=== PATIENT | female | born 1960 | race Caucasian/White ===

== ENCOUNTER 2020-07-10 07:37 | Inpatient (IN) | payer MEDICAID ==
[~2020-07-10] VITALS: Ht 154.9 cm; Wt 54.4 kg
[2020-07-10 07:51] VITALS: BP 153/97
[2020-07-10] MEDS ORDERED: SIMVASTATIN80 MG PO (07:55)
[2020-07-10] MEDS ORDERED: NEURONTIN100 MG PO (07:55)
[2020-07-10] MEDS ORDERED: DESYREL150 MG PO (07:55)
[2020-07-10] MEDS ORDERED: KEPPRA XR500 MG PO (07:55)
[2020-07-10] MEDS ORDERED: METFORMIN HCL500 M3 PO (07:55)
[2020-07-10] MEDS ORDERED: LASIX 40 MG TAB40 MG PO (07:55)
[2020-07-10 08:02] LABS: URINE BILIRUBIN NEGATIVE (Negative); URINE BLOOD NEGATIVE (Negative); URINE CLARITY CLEAR; URINE COLOR YELLOW; URINE GLUCOSE-RANDOM NEGATIVE (Negative); URINE KETONES NEGATIVE (Negative); URINE LEUKOCYTES-REFLEX NEGATIVE (Negative); URINE NITRITE-REFLEX NEGATIVE (Negative); URINE PROTEIN NEGATIVE (Negative); URINE UROBILINOGEN 0.2 E.U./dl (0.2-1.0)
[2020-07-10 08:23] LABS: ABSOLUTE EOSINOPHILS 0.1 thou/uL (0.0-0.7); ABSOLUTE MONOCYTES 0.5 thou/uL (0.0-1.2); ABSOLUTE NEUTROPHILS 3.4 thou/uL (1.6-8.1); BASOPHILS 0.8 %; EOSINOPHILS 2.5 %; HEMATOCRIT 40.6 % (37.0-47.0); HEMOGLOBIN 13.9 gm/dL (12.0-15.0); LYMPHOCYTES 19.8 %; MCH 30.9 pg (26.0-34.0); MCHC 34.1 g/dL (28.0-37.0); MCV 90.4 fL (80.0-100.0); MONOCYTES 9.1 %; MPV 7.9 fl. (7.2-11.1); NUCLEATED RBCS 0 /100WBC; PLATELET COUNT* 138 thou/uL (150-400); POLYS 67.8 %; RBC 4.49 mil/uL (4.20-5.00); RDW-CV 13.1 % (10.5-14.5); WBC 5.1 thou/uL (4.0-11.0)
[2020-07-10 08:33] LABS: CALCIUM 8.9 mg/dL (8.5-10.1); POTASSIUM 3.2 mmol/L (3.5-5.1)
[2020-07-10 08:45] LABS: ALBUMIN 3.4 g/dL (3.4-5.0); TOTAL BILIRUBIN 0.5 mg/dL (<0.1-1.0); TOTAL PROTEIN 8.4 g/dL (6.4-8.2)
[2020-07-10 14:30] VITALS: BP 138/96
--- NOTE | 2020-07-11 16:33 | EKG ---
[place] [address] ELECTROCARDIOGRAM REPORT Name: MAT CHAVEZN Room: [address] [place] [facility].#: [id number] Admission: 07/10/20 Attend Phys: Richard Valadez Discharge: 07/10/20 Date of : 56 Date of Service: 07/10/20816 Report #: [id number] THIS REPORT FOR: //name// [facility] ED Test Date: 2020-07-10 Test Time: 08:17:34 Pat Name: MAT CHAVEZ Department: Room: [facility] Gender: F [employer] Cutter: CCD : 1960 Requested By: Antoine Martínez Order Number: [id number] MD: Abiel Garzon Measurements Intervals [place] Rate: 92 P: 76 FL: 144 QRS: 49 QRSD: 83 T: 63 QT: 382 QTc: 473 Interpretive Statements Sinus rhythm LAE, consider biatrial enlargement No previous ECG available for comparison Electronically Signed On 07-11-2020 16:33:39 APPRAISER by Abiel Garzon [email or web address] <ELECTRONICALLY SIGNED> By: Abiel Garzon MD, [facility] 07/11/20 1633 6 6 Abiel Garzon MD, [facility] /EPI
== END 2020-07-10 14:35 | disposition left against medical advice (07) | DRG 391 ==
LOC: M.ERS 07:37 → M.TBA-ER 10:28
PROVIDERS: Family Medicine; ADMIT Internal Medicine; ATTEND Internal Medicine
DX: K52.9 Noninfective gastroenteritis and colitis, unspecified (principal); I81 Portal vein thrombosis; K74.60 Unspecified cirrhosis of liver; I95.89 Other hypotension; F17.210 Nicotine dependence, cigarettes, uncomplicated; F12.90 Cannabis use, unspecified, uncomplicated; Z20.828 Contact with and (suspected) exposure to other viral communicable diseases; Z88.8 Allergy status to other drugs, medicaments and biological substances; Z90.710 Acquired absence of both cervix and uterus; Z90.49 Acquired absence of other specified parts of digestive tract; Z79.84 Long term (current) use of oral hypoglycemic drugs; Z79.899 Other long term (current) drug therapy; Z88.5 Allergy status to narcotic agent

== ENCOUNTER 2020-07-11 08:15 | Inpatient (IN) | payer MEDICAID ==
[~2020-07-11] VITALS: Ht 160 cm; Wt 60.3 kg
[~2020-07-11 08:15] MED LIST: DESYREL150 MG PO; KEPPRA XR500 MG PO; LASIX 40 MG TAB40 MG PO; METFORMIN HCL500 M3 PO; NEURONTIN100 MG PO; SIMVASTATIN80 MG PO
[2020-07-11 08:30] VITALS: BP 146/95
[2020-07-11 11:08] LABS: URINE BILIRUBIN NEGATIVE (Negative); URINE BLOOD NEGATIVE (Negative); URINE CLARITY CLEAR; URINE COLOR YELLOW; URINE GLUCOSE-RANDOM NEGATIVE (Negative); URINE KETONES NEGATIVE (Negative); URINE LEUKOCYTES-REFLEX NEGATIVE (Negative); URINE NITRITE-REFLEX NEGATIVE (Negative); URINE PROTEIN NEGATIVE (Negative); URINE UROBILINOGEN 0.2 E.U./dl (0.2-1.0)
[2020-07-11 11:18] LABS: ABSOLUTE EOSINOPHILS 0.1 thou/uL (0.0-0.7); ABSOLUTE LYMPHOCYTES 0.8 thou/uL (0.8-5.3); ABSOLUTE MONOCYTES 0.3 thou/uL (0.0-1.2); ABSOLUTE NEUTROPHILS 3.3 thou/uL (1.6-8.1); BASOPHILS 0.6 %; EOSINOPHILS 1.8 %; HEMATOCRIT 40.7 % (37.0-47.0); HEMOGLOBIN 13.9 gm/dL (12.0-15.0); LYMPHOCYTES 17.8 %; MCH 31.1 pg (26.0-34.0); MCHC 34.2 g/dL (28.0-37.0); MCV 90.9 fL (80.0-100.0); MONOCYTES 6.6 %; MPV 7.6 fl. (7.2-11.1); NUCLEATED RBCS 0 /100WBC; PLATELET COUNT* 133 thou/uL (150-400); POLYS 73.2 %; RBC 4.48 mil/uL (4.20-5.00); RDW-CV 13.5 % (10.5-14.5); WBC 4.5 thou/uL (4.0-11.0)
[2020-07-11 11:25] LABS: CREATININE 0.9 mg/dL (0.6-1.3); POTASSIUM 3.5 mmol/L (3.5-5.1)
[2020-07-11 11:29] LABS: ALBUMIN 3.4 g/dL (3.4-5.0); TOTAL BILIRUBIN 0.5 mg/dL (<0.1-1.0); TOTAL PROTEIN 8.4 g/dL (6.4-8.2)
[2020-07-11 16:33] VITALS: BP 147/95
[2020-07-11 18:00] VITALS: BP 132/87
[2020-07-11 18:05] VITALS: BP 147/95
[2020-07-11 20:32] VITALS: BP 128/88
[2020-07-12 05:11] LABS: ABSOLUTE EOSINOPHILS 0.1 thou/uL (0.0-0.7); ABSOLUTE LYMPHOCYTES 0.8 thou/uL (0.8-5.3); ABSOLUTE MONOCYTES 0.3 thou/uL (0.0-1.2); ABSOLUTE NEUTROPHILS 2.6 thou/uL (1.6-8.1); BASOPHILS 0.6 %; EOSINOPHILS 2.1 %; HEMATOCRIT 34.5 % (37.0-47.0); LYMPHOCYTES 21.9 %; MCH 30.4 pg (26.0-34.0); MCHC 33.8 g/dL (28.0-37.0); MONOCYTES 8.9 %; MPV 7.8 fl. (7.2-11.1); NUCLEATED RBCS 0 /100WBC; PLATELET COUNT* 120 thou/uL (150-400); POLYS 66.5 %; RBC 3.83 mil/uL (4.20-5.00); RDW-CV 13.5 % (10.5-14.5); WBC 3.9 thou/uL (4.0-11.0)
[2020-07-12 05:26] LABS: HEMOGLOBIN 11.6 gm/dL (12.0-15.0)
[2020-07-12 05:39] LABS: CALCIUM 8.4 mg/dL (8.5-10.1); CREATININE 0.7 mg/dL (0.6-1.3); POTASSIUM 3.4 mmol/L (3.5-5.1)
[2020-07-12 07:30] VITALS: BP 107/83
[2020-07-12 12:13] LABS: INR 1.2; PROTIME 12.2 Seconds (9.20-11.50)
[2020-07-12 16:00] VITALS: BP 146/91
[2020-07-12 20:29] VITALS: BP 138/85
[2020-07-13 04:49] LABS: ABSOLUTE EOSINOPHILS 0.1 thou/uL (0.0-0.7); ABSOLUTE LYMPHOCYTES 0.9 thou/uL (0.8-5.3); ABSOLUTE MONOCYTES 0.4 thou/uL (0.0-1.2); ABSOLUTE NEUTROPHILS 2.6 thou/uL (1.6-8.1); BASOPHILS 0.7 %; EOSINOPHILS 2.1 %; HEMATOCRIT 34.7 % (37.0-47.0); HEMOGLOBIN 11.8 gm/dL (12.0-15.0); LYMPHOCYTES 22.2 %; MCH 30.7 pg (26.0-34.0); MCV 90.1 fL (80.0-100.0); MPV 8.1 fl. (7.2-11.1); NUCLEATED RBCS 0 /100WBC; PLATELET COUNT* 110 thou/uL (150-400); RBC 3.85 mil/uL (4.20-5.00); RDW-CV 13.4 % (10.5-14.5); WBC 3.9 thou/uL (4.0-11.0)
[2020-07-13 05:12] LABS: CALCIUM 8.7 mg/dL (8.5-10.1); CREATININE 0.9 mg/dL (0.6-1.3); POTASSIUM 3.1 mmol/L (3.5-5.1)
[2020-07-13 07:08] LABS: HEPATITIS B SURFACE AG Negative (Negative)
[2020-07-13 08:00] VITALS: BP 146/97
[2020-07-13 16:45] VITALS: BP 132/82
[2020-07-13 19:50] VITALS: BP 136/94
[2020-07-14 04:32] LABS: HEMATOCRIT 36.4 % (37.0-47.0); HEMOGLOBIN 12.5 gm/dL (12.0-15.0); MCHC 34.3 g/dL (28.0-37.0); MPV 7.9 fl. (7.2-11.1); NUCLEATED RBCS 0 /100WBC; WBC 4.5 thou/uL (4.0-11.0)
[2020-07-14 04:34] LABS: ABSOLUTE EOSINOPHILS 0.1 thou/uL (0.0-0.7); ABSOLUTE LYMPHOCYTES 0.9 thou/uL (0.8-5.3); ABSOLUTE MONOCYTES 0.5 thou/uL (0.0-1.2); BASOPHILS 0.5 %; EOSINOPHILS 1.5 %; LYMPHOCYTES 20.6 %; MCH 30.8 pg (26.0-34.0); MCV 89.9 fL (80.0-100.0); MONOCYTES 10.4 %; PLATELET COUNT* 129 thou/uL (150-400); RBC 4.04 mil/uL (4.20-5.00); RDW-CV 13.5 % (10.5-14.5)
[2020-07-14 04:48] LABS: CALCIUM 9.4 mg/dL (8.5-10.1); CREATININE 0.8 mg/dL (0.6-1.3)
[2020-07-14 07:55] VITALS: BP 130/85
--- NOTE | 2020-07-14 14:05 | CON ---
[address] [address] CONSULTATION Name: MAT CHAVEZ Room: [address] ADM IN M.R.#: [id number] Admission: 07/11/20 Attend Phys: Koko Obrien MD Discharge: Date of : 56 Report #: [id number] THIS REPORT FOR: //name// cc: [facility] physician unknown [facility] physician unknown ~ DATE OF SERVICE: 07/12/2020 Please note at the time of this dictation, the patient was seen and physically examined by myself. REASON FOR CONSULTATION: Portal vein thrombosis and cirrhosis. HISTORY OF PRESENT ILLNESS: This is a 59-year-old female who presented to the Emergency Room on 07/10 and left AMA and returned the following day due to ongoing right upper quadrant pain. The patient states that she was diagnosed with cirrhosis many years ago. She does not recall as to why she has cirrhosis; however, it is indicated in her chart that she quit drinking 3 years ago. When asked regarding this, she states that she only had a couple of margaritas on the weekends. She does smoke marijuana on a more regular basis. The patient states she has not seen anyone for her cirrhosis in several years. She has been seen down at [facility] on the [place] in which she has had an EGD done down there before as well as [facility]. We will obtain those records to help further delineate the cause of her cirrhosis and what procedures she has had done before. It appears she has never really followed up as an outpatient that she only follows up with a GI specialist when she is admitted to the hospital. She states that she has had paracentesis in the past, last one being several years ago. She states she has been on spironolactone and Lasix, but recently her PCP took her off the spironolactone. She is unclear as to why. She states she has had both upper and lower scopes done in the past and again will need to await hospital records for review to see when these were done. Currently, her bowels are moving one to up to three times a day. She does take lactulose and she was told that she needed to have 2-3 bowel movements a day, which she has been taking lactulose at home. However, on her medication list, it does not indicate that. ALLERGIES: CODEINE, ACETAMINOPHEN. MEDICATIONS: From home include metformin, Keppra, Lasix 40, Desyrel, simvastatin, and Neurontin. PAST MEDICAL HISTORY: Stage IV cirrhosis, seizures, type 2 diabetes. PAST SURGICAL HISTORY: Colonoscopy in 2011, hysterectomy, cholecystectomy, appendectomy. FAMILY HISTORY: Negative for any GI [place] [address] CONSULTATION Name: MAT CHAVEZ Room: [address] [place] .#: [id number] Admission: 07/11/20 Attend Phys: Koko Obrien MD Discharge: Date of : 56 Report #: [id number] SOCIAL HISTORY: Tobacco use. Past use of alcohol several years ago. Does smoke THC on a regular basis. REVIEW OF SYSTEMS: Twelve-point review of systems is essentially negative except what is mentioned in the HPI. PHYSICAL EXAMINATION: VITAL SIGNS: Temperature 37.1, pulse 94, respirations 16, blood pressure 107/83. HEART: Regular rate and rhythm. LUNGS: Diminished, but clear. ABDOMEN: Soft, positive bowel sounds in all 4 quadrants with tenderness noted on the right side. LABORATORY DATA: Hemoglobin is 11.6, white count is 3.9, platelets 120. GFR is 85, total bilirubin 0.5, alkaline phosphatase 147, ALT 31, AST is 38. CT scan shows nodularity with paraesophageal and gastric varices were noted as well as ascending and proximal transverse colon. Circumferential wall thickening noted as well. IMPRESSION: 1. Abdominal pain, right sided. 2. Abnormal CT, right-sided colonic wall thickening, paraesophageal and gastric varices, portal vein thrombosis, and nodular liver. 3. Cirrhosis, questionable etiology. 4. Thrombocytopenia. 5. Anticoagulant therapy, Eliquis secondary to portal vein thrombus. 6. Chronic obstructive pulmonary disease. PLAN: 1. The patient needs EGD and colonoscopy to assess her paraesophageal and gastric varices as well as a colonoscopy to assess her right-sided bowel wall thickening. 2. Labs, PT/INR, acute hepatitis panel, CMP, CBC for tomorrow. 3. We will need to discuss with the hospitalist and Vascular regarding her anticoagulant therapy, would prefer her not to be on any so that we can do biopsies at the time of EGD and colonoscopy. 4. Obtain records from [facility] on the [place] in [facility]. All of them to get a better picture as to the cause of her cirrhosis as well as when she has had her last procedures performed. 5. The patient will need to stay on her lactulose daily to ensure that she has 2-3 bowel movements daily. Continue with her Lasix 40 mg, likely needs to be put back on her spironolactone at 100 mg daily to prevent any reoccurrence of her ascites. 6. Further recommendations to be made once Dr. Chapman sees the patient [place] [id number] CONSULTATION Name: MAT CHAVEZ Room: [address] IN [facility].#: [id number] Admission: 07/11/20 Attend Phys: Koko Obrien MD Discharge: Date of : 56 Report #: [id number] later today. Thank you for allowing us to participate in this patient's care. Please do not hesitate to call with any questions in regard to this consult. Agree with the above assessment and pln by Risa Holcomb <ELECTRONICALLY SIGNED> By: Brown Chapman MD 07/14/20 1405 1142 [id number] Chapman MD /nt
[2020-07-14 16:00] VITALS: BP 136/90
[2020-07-14 20:00] VITALS: BP 138/89
[2020-07-15 04:41] LABS: ABSOLUTE EOSINOPHILS 0.1 thou/uL (0.0-0.7); ABSOLUTE MONOCYTES 0.4 thou/uL (0.0-1.2); BASOPHILS 0.5 %; EOSINOPHILS 1.8 %; HEMATOCRIT 35.7 % (37.0-47.0); HEMOGLOBIN 12.2 gm/dL (12.0-15.0); LYMPHOCYTES 22.6 %; MCH 30.7 pg (26.0-34.0); MCHC 34.2 g/dL (28.0-37.0); MCV 89.9 fL (80.0-100.0); MONOCYTES 9.8 %; MPV 8.2 fl. (7.2-11.1); NUCLEATED RBCS 0 /100WBC; PLATELET COUNT* 122 thou/uL (150-400); POLYS 65.3 %; RBC 3.98 mil/uL (4.20-5.00); RDW-CV 13.1 % (10.5-14.5); WBC 4.6 thou/uL (4.0-11.0)
[2020-07-15 05:22] LABS: ALBUMIN 2.9 g/dL (3.4-5.0); CREATININE 0.9 mg/dL (0.6-1.3); POTASSIUM 3.4 mmol/L (3.5-5.1); TOTAL BILIRUBIN 0.6 mg/dL (<0.1-1.0)
[2020-07-15 07:35] VITALS: BP 148/97
[2020-07-15] MEDS ORDERED: ELIQUIS5 MG PO (10:33)
[2020-07-15] MEDS ORDERED: ELIQUIS5 M1 PO (10:33)
[2020-07-15 11:47] VITALS: BP 148/97
[2020-07-15 14:13] VITALS: BP 148/97
== END 2020-07-15 13:30 | disposition home or self-care (01) | DRG 442 ==
LOC: M.ERS 08:15 → M.TBA-ER 11:54 → M.3W 18:12
PROVIDERS: Emergency Medicine Emergency Medical Services; Nurse Practitioner Adult Health; ADMIT Internal Medicine; ATTEND Internal Medicine
PROC: 0DJ08ZZ Inspection of Upper Intestinal Tract, Via Natural or Artificial Opening Endoscopic (ICD-10-PCS; principal; 2020-07-14)
PROC: 0DJD8ZZ Inspection of Lower Intestinal Tract, Via Natural or Artificial Opening Endoscopic (ICD-10-PCS; 2020-07-14)
DX: I81 Portal vein thrombosis (principal); I85.00 Esophageal varices without bleeding; K74.60 Unspecified cirrhosis of liver; E11.9 Type 2 diabetes mellitus without complications; Z88.8 Allergy status to other drugs, medicaments and biological substances; Z90.49 Acquired absence of other specified parts of digestive tract; D69.6 Thrombocytopenia, unspecified; J44.9 Chronic obstructive pulmonary disease, unspecified; Z20.828 Contact with and (suspected) exposure to other viral communicable diseases; Z88.6 Allergy status to analgesic agent; Z23 Encounter for immunization